=== PATIENT | male | born 1990 | race Caucasian/White ===

== ENCOUNTER 2018-04-02 21:23 | Emergency (ER) | payer SELFPAY ==
[~2018-04-02] VITALS: Ht 182.9 cm; Wt 68.2 kg
[2018-04-02 21:24] VITALS: BP 126/72; Ht 182.9 cm; Wt 68.2 kg
== END 2018-04-03 00:18 | disposition left against medical advice (07) ==
LOC: D.ER 21:23
DX: G40.909 Epilepsy, unspecified, not intractable, without status epilepticus (principal); Z91.19 Patient's noncompliance with other medical treatment and regimen; F19.10 Other psychoactive substance abuse, uncomplicated; E11.9 Type 2 diabetes mellitus without complications; F17.200 Nicotine dependence, unspecified, uncomplicated